=== PATIENT | female | born 2000 | race Hispanic/Latino ===

== ENCOUNTER 2021-08-24 22:10 | Emergency (ER) | payer OTHER ==
[2021-08-24] MEDS ORDERED: Morphine 4 MG/ML VIAL ONE (22:25)
[2021-08-24] MEDS ORDERED: Ondansetron PF 4 MG/2 ML Vial ONE (22:25)
[2021-08-24 22:45] LABS: #Basophils 0.2 thou/uL (0.0-0.2); #Lymphocytes 7.8 thou/uL (1.20-3.40); #Monocytes 0.3 thou/uL (0.11-0.59); #Neutrophils 4.4 thou/uL (1.40-6.50); %Basophils 1.2 % (0.0-1.0); %Lymphocytes 61.9 % (21.0-51.0); %Monocytes 2.1 % (0.0-10.0); %Neutrophils 34.7 % (42.0-75.0); Mean Corpuscular HGB CONC 30.2 g/dL (32.0-36.0); Mean Corpuscular Hemoglobin 27.4 pg (27.0-31.0); Mean Corpuscular Volume 90.8 fL (78.0-98.0); Mean Platelet Volume 9.3 fL (7.4-10.4); Platelet Count 368 thou/uL (130-400); RBC Distribution Width 13.2 % (11.5-14.5); Red Blood Cell (RBC) Count 5.83 mill/uL (4.20-5.40); White Blood Cell (WBC) Count 12.6 thou/uL (4.8-10.8)
[2021-08-24 22:51] LABS: ALT (SGPT) 33 U/L (8-55); AST (SGOT) 27 U/L (5-34); Albumin 4.8 g/dL (3.5-5.0); Alkaline Phosphatase 85 U/L (40-110); Anion Gap 20 mmol/L (10-20); BUN (Urea Nitrogen) 12 mg/dL (7.0-18.7); Bilirubin, Total 0.4 mg/dL (0.2-1.2); Calc. Creatinine Clearance 0 mL/min (70-130); Calcium 10.3 mg/dL (7.8-10.44); Carbon Dioxide 18 mmol/L (22-29); Chloride 104 mmol/L (98-107); Estimated GFR 109; Globulin 3.4 g/dL (2.4-3.5); Glucose 105 mg/dL (70-105); Lipase 41 U/L (8-78); Potassium 3.3 mmol/L (3.5-5.1); Protein, Total 8.2 g/dL (6.0-8.3); Sodium 139 mmol/L (136-145)
[2021-08-24 23:09] LABS: Clarity Slightly Cloudy (Clear)
[2021-08-24 23:10] LABS: Bilirubin Small (Negative); Blood, Urine Moderate (Negative); Glucose, Urine (Dipstick) Negative (Negative); Ketone, Urine Trace mg/dL (Negative); Leukocyte Large (Negative); Nitrite Negative (Negative); Pregnancy Test - Urine (BHCG) Negative (Negative); Pregu Control Background? CLEAR/WHITE (CLR/WHITE); Pregu Control Bar Appear? YES (CONTROL BAR); Protein, Urine (Dipstick) > or equal to 300 mg/dL (Neg-Trace); Urobilinogen 0.2 mg/dL (Less than 2)
[2021-08-24 23:11] LABS: Bacteria/HPF Rare-Few HPF (None Seen); WBC/HPF 21-50 HPF (0-3)
== END 2021-08-25 00:37 | disposition short-term general hospital (02) ==
LOC: NAV ERS 22:10
DX: R10.13 Epigastric pain (principal); R10.811 Right upper quadrant abdominal tenderness; D72.829 Elevated white blood cell count, unspecified
CPT/HCPCS: 80053; 81003; 81015; 81025; 83690; 85025; 96374; 96375; J2270; J2405